=== PATIENT | female | born 1995 | race Caucasian/White ===

== ENCOUNTER 2023-10-28 14:00 | Emergency (ER) | payer BC ==
[2023-10-28 14:45] LABS: Specific Gravity > 1.030 (1.005-1.030)
[2023-10-28 14:49] LABS: Specific Gravity > 1.030 (1.005-1.030); Sqamous Epithelial <5 /HPF (None Seen); Urine Bacteria None Seen /HPF (<20); Urine Bilirubin NEGATIVE (Negative); Urine Blood Negative (Negative); Urine Clarity Turbid (Clear); Urine Color Yellow (Yellow); Urine Culture Reflex Order NOT NEEDED; Urine Glucose NEGATIVE (Negative); Urine Ketones NEGATIVE (Negative); Urine Micro Reflex YN NO BILL MICROSCOPIC; Urine Mucus 3+ /HPF (None Seen); Urine Nitrite NEGATIVE (Negative); Urine Protein TRACE (Negative); Urine Urobilinogen 1+ (Normal); Urine WBC <5 /HPF (<5); Urine pH 5.5 (5.0-7.0)
[2023-10-28] MEDS ORDERED: ONDANSETRON 4 MG/2 ML VIAL ONE (15:10)
[2023-10-28] MEDS ORDERED: NA CHLORIDE 0.9% 1,000 ML ONE ×2 (15:14→16:38)
[2023-10-28 15:24] LABS: Absolute Eosinophils 0.1 K/uL (0-0.5); Absolute Lymphocytes (CBC) 0.6 K/uL (0.7-4.9); Absolute Monocytes 0.5 K/uL (0.1-1.3); Absolute Neutrophil 12.1 K/uL (1.8-8.0); Basophils % 0.2 % (0-1.3); Eosinophils % 0.8 % (0-4.4); Hematocrit 45.5 % (36.0-45.0); Hemoglobin 15.1 g/dL (12.0-15.0); Lymphocytes % 4.3 % (15.3-44.8); MCH 31.2 pg (27.0-35.0); MCHC 33.3 g/dL (32.0-36.0); MCV 93.8 fL (80-100); MPV 8.4 fL (7.6-11.3); Monocytes % 3.4 % (3.3-12.3); Neutrophils % 91.3 % (41.7-73.7); Platelets 310 thou/uL (152-406); RBC Red Blood Cell Count 4.85 M/uL (3.86-4.86); Red Cell Distribution Width 13.4 % (12.1-15.2)
[2023-10-28 15:37] LABS: PT Prothrombin Time 12.4 SECONDS (9.5-12.5); PTT, Activated Partial Thromb 30.3 SECONDS (24.3-36.9); Protime INR 1.13
[2023-10-28 15:42] LABS: Albumin 4.8 g/dL (3.4-5.0); Albumin/Globulin Ratio 1.1 (1.1-1.8); Bilirubin Total 0.7 mg/dL (0.2-1.0); Globulin 4.3 g/dL (2.3-3.5); Protein, Total 9.1 g/dL (6.4-8.2)
[2023-10-28] MEDS ORDERED: DIPHENHYDRAMINE 50 MG/ML VIAL ONE (15:47)
[2023-10-28] MEDS ORDERED: FAMOTIDINE 20 MG/2 ML VIAL IV ONE (15:47)
--- NOTE | 2023-10-28 16:16 | RAD REPORT ---
EXAM DESCRIPTION: CT - Head Brain Wo Cont - 10/28/2023 4:06 pm CLINICAL HISTORY: SLURRED SPEECH COMPARISON: No comparisons TECHNIQUE: All CT scans are performed using dose optimization technique as appropriate and may inclu de automated exposure control or mA/KV adjustment according to patient size. FINDINGS: No intracranial hemorrhage, hydrocephalus or extra-axial fluid collection.No areas of brai n edema or evidence of midline shift. Low-lying cerebellar tonsils. The paranasal sinuses and mastoids are clear. The calvarium is intact. IMPRESSION: No acute intracranial abnormality.
[2023-10-28 16:19] LABS: Blood Morphology Comment NOT SEEN (NOT SEEN); Platelet Estimate ADEQ; White Blood Cell Scan OK (OK)
--- NOTE | 2023-10-28 16:24 | RAD REPORT ---
EXAM DESCRIPTION: CTAbdomen Pelvis W Contrast - 10/28/2023 4:13 pm CLINICAL HISTORY: ABD PAIN COMPARISON: No comparisons TECHNIQUE: CT of the abdomen and pelvis was performed. All CT scans are performed using dose optimization technique as appropriate and may include automated exposure control or mA/KV adjustment according to patient size. FINDINGS: Lower chest: No acute abnormality. Liver: No acute abnormality or suspicious lesions. Biliary: No biliary ductal dilatation. Cholecystectomy Stomach: No significant focal abnormality. Duodenum: No significant focal abnormality. Pancreas: No significant abnormality. Spleen: No significant abnormality. Adrenal: No suspicious lesions. Kidney/ureter: No hydronephrosis. No renal calculi. Retroperitoneum: No retroperitoneal adenopathy. Vascular: No aneurysm. Bowel: Fluid present throughout the small bowel and colon. No appendicitis . Peritoneum: No ascites or free air. Bladder: Grossly unremarkable. Reproductive: No adnexal masses. Bones: No acute fracture. Other: n/a IMPRESSION: Nonspecific fluid within the small bowel and colon could represent a gastroenteritis. No appendicitis.
[2023-10-28] MEDS ORDERED: NA CHLORIDE 0.9% 50 ML ONE (17:44)
[2023-10-28] MEDS ORDERED: METOCLOPRAMIDE 10 MG/2mL INJ ONE (17:44)
--- NOTE | 2023-10-28 18:13 | ER ---
Nurse's Notes [facility] Name: Yolanda Alfonso Age: 27 yrs Sex: Female : 1995 Arrival Date: 10/28/2023 Time: 14:00 Bed 14 Private MD: Diagnosis: Gastroenteritis Presentation: 10/27 14:09 Chief complaint: Patient states: RLQ abdominal pain with N/V/D started this AM. Sweaty ll1 but no known fever. Coronavirus screen: Client denies travel out of the [place] in the last 14 days. At this time, the client does not indicate any symptoms associated with coronavirus-19. Ebola Screen: Patient denies travel to an Ebola-affected area in the 21 days before illness onset. Initial Sepsis Screen: Does the patient meet any 2 criteria? No. Patient's initial sepsis screen is negative. Does the patient have a suspected source of infection? No. Patient's initial sepsis screen is negative. Risk Assessment: Do you want to hurt yourself or someone else? Patient reports no desire to harm self or others. Onset of symptoms was October 28, 2023. 14:09 Method Of Arrival: Ambulatory ll1 14:09 Acuity: YUNG 3 ll1 Triage Assessment: 14:10 General: Appears uncomfortable, Behavior is calm, cooperative, appropriate for age. ll1 Pain: Complains of pain in right lower quadrant Quality of pain is described as aching, sharp. Neuro: No deficits noted. Cardiovascular: No deficits noted. GI: Reports lower abdominal pain, diarrhea, nausea, vomiting. Historical: - Allergies: 14:08 Iodine; ll1 14:08 SHELLFISH; ll1 - Home Meds: 14:08 Prozac Oral [Active]; ll1 - PMHx: 14:08 HTN during ; ll1 - PSHx: 14:08 Cholecystectomy; Tonsillectomy; ll1 - Immunization history:: Adult Immunizations up to date. - Infectious Disease History:: Denies. - Social history:: Smoking status: Patient denies any tobacco usage or history of. Screenin:34 [facility] ED Fall Risk Assessment (Adult) History of falling in the last 3 months, db including since admission No falls in past 3 months (0 pts) Confusion or Disorientation No (0 pts) Intoxicated or Sedated No (0 pts) Impaired Gait No (0 pts) Mobility Assist Device Used No (0 pt) Altered Elimination No (0 pt) Score/Fall Risk Level 0 - 2 = Low Risk Oriented to surroundings, Maintained a safe environment. Abuse screen: Denies threats or abuse. Denies injuries from another. Nutritional screening: No deficits noted. Tuberculosis screening: No symptoms or risk factors identified. Assessment: 14:45 Reassessment: Patient appears in no apparent distress at this time. Patient and/or db family updated on plan of care and expected duration. Pain level reassessed. Patient is alert, oriented x 3, equal unlabored respirations, skin warm/dry/pink. General: Appears in no apparent distress. comfortable, Behavior is calm, cooperative. Pain: Complains of pain in abdomen and right lower quadrant. Neuro: Level of Consciousness is awake, alert, obeys commands, Oriented to person, place, time, situation. Respiratory: Airway is patent Respiratory effort is even, unlabored, Respiratory pattern is regular, symmetrical. GI: Abd is soft Abdomen is tender to palpation in right lower quadrant. 15:00 Reassessment: PT SUDDENLY BECAME SHORT OF BREATH, DIAPHORETIC, PALE AND STARTED db VOMITING. NOTIFIED. PROVIDER Negrita LEE. PT BP INITIALLY 78/49 THEN DROPPED TO 66/52 PLACED IN TRENDELENBURG AND NS BOLUS STARTED BP INCREASED TO 82/59 AND THEN 98/76. PROVIDER AT BEDSIDE AND ASSESSED PT. NO NEW ORDERS AT THIS TIME. General: Appears distressed, uncomfortable, Behavior is. 16:03 Reassessment: Patient appears in no apparent distress at this time. Patient and/or db family updated on plan of care and expected duration. Pain level reassessed. Patient is alert, oriented x 3, equal unlabored respirations, skin warm/dry/pink. Patient states feeling better. Patient states symptoms have improved. 16:43 Reassessment: PATIENT PROVIDED WATER FOR PO CHALLENGE. db 17:50 Reassessment: PATIENT GIVEN JUICE AND CRACKERS FOR PO CHALLENGE. COMPLAINED OF NAUSEA. db GIVEN REGLAN. SEE MAR. 18:24 Reassessment: Patient appears in no apparent distress at this time. Patient and/or db family updated on plan of care and expected duration. Pain level reassessed. Patient is alert, oriented x 3, equal unlabored respirations, skin warm/dry/pink. PT TOLERATED PO CHALLENGE. Patient states feeling better. Patient states symptoms have improved. Vital Signs: 14:09 BP 120 / 87; Pulse 118; Resp 17; Temp 97.2; Pulse Ox 97% ; Weight 63.5 kg; Height 5 ft. ll1 9 in. ; Pain 5/10; 15:00 BP 78 / 49; Pulse 112; Resp 24; Pulse Ox 97% on R/A; db 15:05 BP 66 / 52; Pulse 69; Resp 22; Pulse Ox 99% ; db 15:06 BP 80 / 51; Pulse 87; db 15:07 BP 82 / 59; Pulse 87; Resp 21; db 15:08 BP 98 / 76; Pulse 95; Resp 20; db 15:14 BP 100 / 71; Pulse 84; Resp 18; Pulse Ox 100% on R/A; db 15:14 BP 100 / 71; Pulse 84; db 15:30 BP 112 / 74; Pulse 76; Resp 14; Pulse Ox 100% on R/A; db 16:21 BP 114 / 76; Pulse 89; Resp 14; Temp 98.6; Pulse Ox 100% ; db 17:00 BP 121 / 77; Pulse 87; Resp 16; Pulse Ox 100% on R/A; db 18:24 BP 110 / 74; Pulse 87; Resp 18; Pulse Ox 100% on R/A; db 14:09 Body Mass Index 20.67 (63.50 kg, 175.26 cm) ll1 14:09 Pain Scale: Adult ll1 ED Course: 14:02 Patient arrived in ED. ts1 14:03 Jackie Dean [facility]C [facility]. sb4 14:03 Laci Nails MD is Attending Physician. sb4 14:10 Triage completed. ll1 14:10 Arm band placed on Patient placed in an exam room, on a stretcher. ll1 14:33 Test, Urine Sent. me1 14:33 UAM Sent. me1 14:33 Urine collected: clean catch specimen, dewayne colored. me1 14:45 First set of blood cultures drawn by me. db 15:05 Initial lab(s) drawn, by me, sent to lab. Second set of blood cultures drawn. Inserted db saline lock: 22 gauge in right antecubital area, using aseptic technique. Blood collected. 15:27 Zabrina Self, RN is Primary Nurse. db 15:32 Patient has correct armband on for positive identification. Bed in low position. Call db light in reach. Side rails up X 1. Placed in gown. Client placed on continuous cardiac and pulse oximetry monitoring. NIBP monitoring applied. lunchroom monitor on. Pulse ox on. NIBP on. 16:[address] db 16:08 Head Brain Wo Cont CT In Process Unspecified. EDMS 16:14 CT Abd/Pelvis - IV Contrast Only: pre-medicate with benadryl In Process Unspecified. EDMS 18:34 No provider procedures requiring assistance completed. IV discontinued, intact, db bleeding controlled, No redness/swelling at site. 18:34 Provided Education on: DISCHARGE. Warm blanket given. Pillow given. db Administered Medications: 15:10 Drug: Ondansetron IVP 4 mg IVP once; over 2 minutes Route: IVP; Site: right antecubital;db 16:07 Follow up: Response: No adverse reaction db 15:27 Drug: NS 0.9% IV 1000 ml IV at 1 bolus Per protocol; 1000 mL bolus Route: IV; Rate: 1 db bolus; Site: right antecubital; 16:07 Follow up: Response: No adverse reaction; IV Status: Completed infusion; IV Intake: db 1000ml 15:56 Drug: Famotidine IVP 20 mg IVP once; dilute with 10 mL 0.9% NaCl; give over 2 minutes db Route: IVP; Site: right antecubital; 16:07 Follow up: Response: No adverse reaction db 15:58 Drug: diphenhydrAMINE IVP 50 mg IVP once Route: IVP; Site: right antecubital; db 16:07 Follow up: Response: No adverse reaction db 16:43 Drug: NS 0.9% IV 1000 ml IV at 1 bolus Per protocol; 1000 mL bolus Route: IV; Rate: 1 db bolus; Site: right antecubital; 18:35 Follow up: Response: No adverse reaction; IV Status: Completed infusion; IV Intake: db 1000ml 17:50 Drug: metoCLOPramide IVP 10 mg IVP once; over 1 to 2 minutes Route: IVP; Site: right db antecubital; 18:36 Follow up: Response: No adverse reaction db Medication: 14:45 VIS not applicable for this client. db Intake: 16:07 IV: 1000ml; Total: 1000ml. db 18:35 IV: 1000ml; Total: 2000ml. db Outcome: 18:12 Discharge ordered by . sb4 18:34 Discharged to home ambulatory, with family, db 18:34 Condition: stable 18:34 Discharge instructions given to patient, Instructed on discharge instructions, follow up and referral plans. Prescriptions given X 1, 18:36 Patient left the ED. db Signatures: Dispatcher [employer] Ophelia Bernardo RN RN ll1 Zabrina Self RN RN db Jackie Dean PA-C PA-C sb4 Jhoana Perkins, MERLE PAS ts1 Swetha Pinto RN RN me1 Corrections: (The following items were deleted from the chart) 15:14 14:09 Chief complaint: Patient states: RLQ abdominal apin with N/V/D started this AM. ll1 Sweaty but no known fever ll1
--- NOTE | 2023-10-28 18:13 | EDPHYS ---
Physician Documentation [facility] Name: Yolanda Alfonso Age: 27 yrs Sex: Female : 1995 Arrival Date: 10/28/2023 Time: 14:00 Bed 14 Private MD: EDMUND Physician Laci Nails HPI: 10/27 14:17 This 27 yrs old Female presents to ER via Ambulatory with complaints of Abdominal Pain. sb4 14:17 The patient presents with abdominal pain right lower quadrant. Onset: The sb4 symptoms/episode began/occurred this morning. The symptoms do not radiate. Associated signs and symptoms: Pertinent positives: nausea, vomiting, and diarrhea. The symptoms are described as sharp. Modifying factors: The symptoms are alleviated by remaining still, the symptoms are aggravated by movement. Severity of pain: At its worst the pain was a 8 / 10. The patient has experienced a previous episode, many years ago, with an ovarian cyst. The patient has not recently seen a physician. Historical: - Allergies: 14:08 Iodine; ll1 14:08 SHELLFISH; ll1 - Home Meds: 14:08 Prozac Oral [Active]; ll1 - PMHx: 14:08 HTN during ; ll1 - PSHx: 14:08 Cholecystectomy; Tonsillectomy; ll1 - Immunization history:: Adult Immunizations up to date. - Infectious Disease History:: Denies. - Social history:: Smoking status: Patient denies any tobacco usage or history of. ROS: 14:17 Constitutional: Negative for fever, chills, and weight loss, sb4 14:17 Abdomen/GI: Positive for abdominal pain, nausea, vomiting, and diarrhea, 14:17 All other systems are negative, Exam: 14:17 Constitutional: This is a well developed, well nourished patient who is awake, alert, sb4 and in no acute distress. Head/Face: Normocephalic, atraumatic. Eyes: Extra-ocular motions intact. Periorbital areas with no swelling, redness, or edema. ENT: Mucous membranes moist. Cardiovascular: Regular rate and rhythm with a normal S1 and S2. Respiratory: Lungs have equal breath sounds bilaterally, clear to auscultation and percussion. No rales, rhonchi or wheezes noted. No increased work of breathing, no retractions or nasal flaring. Skin: Warm, dry with normal turgor. Normal color with no rashes, no lesions, and no evidence of cellulitis. MS/ Extremity: Pulses equal, no cyanosis. Neurovascular intact. Full, normal range of motion. 14:17 Abdomen/GI: Inspection: abdomen appears normal, Bowel sounds: normal, Palpation: soft, mild abdominal tenderness, in the right lower quadrant, Vital Signs: 14:09 BP 120 / 87; Pulse 118; Resp 17; Temp 97.2; Pulse Ox 97% ; Weight 63.5 kg; Height 5 ft. ll1 9 in. ; Pain 5/10; 15:00 BP 78 / 49; Pulse 112; Resp 24; Pulse Ox 97% on R/A; db 15:05 BP 66 / 52; Pulse 69; Resp 22; Pulse Ox 99% ; db 15:06 BP 80 / 51; Pulse 87; db 15:07 BP 82 / 59; Pulse 87; Resp 21; db 15:08 BP 98 / 76; Pulse 95; Resp 20; db 15:14 BP 100 / 71; Pulse 84; Resp 18; Pulse Ox 100% on R/A; db 15:14 BP 100 / 71; Pulse 84; db 15:30 BP 112 / 74; Pulse 76; Resp 14; Pulse Ox 100% on R/A; db 16:21 BP 114 / 76; Pulse 89; Resp 14; Temp 98.6; Pulse Ox 100% ; db 17:00 BP 121 / 77; Pulse 87; Resp 16; Pulse Ox 100% on R/A; db 18:24 BP 110 / 74; Pulse 87; Resp 18; Pulse Ox 100% on R/A; db 14:09 Body Mass Index 20.67 (63.50 kg, 175.26 cm) ll1 14:09 Pain Scale: Adult ll1 MDM: 14:04 Patient medically screened. sb4 17:44 Data reviewed: vital signs, nurses notes, lab test result(s), radiologic studies, I sb4 have discussed the patient's presentation/case with the attending Emergency Department Physician; and as a result, I will discharge patient. Consideration of Admission/Observation Escalation of care including admission/observation considered. Counseling: I had a detailed discussion with the patient and/or guardian regarding the historical points, exam findings, and any diagnostic results supporting the discharge/admit diagnosis, lab results, radiology results, to return to the emergency department if symptoms worsen or persist or if there are any questions or concerns that arise at home. 10/27 14:12 Order name: Blood Culture Adult (2) 4 10/27 14:12 Order name: CBC with Diff; Complete Time: 16:25 sb4 10/27 14:12 Order name: CMP; Complete Time: 15:42 sb4 10/27 14:12 Order name: Lactate w/ 2H reflex if indic.; Complete Time: 15:43 sb4 10/27 14:12 Order name: Protime (+inr); Complete Time: 15:38 sb4 10/27 14:12 Order name: Ptt, Activated; Complete Time: 15:38 sb4 10/27 14:12 Order name: Lipase; Complete Time: 15:42 sb4 10/27 14:19 Order name: Test, Urine; Complete Time: 14:51 sb4 10/27 14:19 Order name: UAM; Complete Time: 14:51 4 10/27 16:20 Order name: CBC Smear Scan; Complete Time: 16:25 EDMS 10/27 14:16 Order name: CT Abd/Pelvis - IV Contrast Only: pre-medicate with benadryl; Complete sb4 Time: 16:25 10/27 15:25 Order name: Head Brain Wo Cont CT; Complete Time: 16:16 4 10/27 14:12 Order name: Cardiac monitoring; Complete Time: 15:27 sb4 10/27 14:12 Order name: IV Saline Lock - Large Bore; Complete Time: 15:28 4 10/27 14:12 Order name: Labs collected and sent; Complete Time: 15:28 4 10/27 14:12 Order name: O2 Sat Monitoring; Complete Time: 15:28 sb4 10/27 14:12 Order name: Vital Signs; Complete Time: 15:28 4 10/27 16:33 Order name: PO challenge; Complete Time: 17:50 sb4 Administered Medications: 15:10 Drug: Ondansetron IVP 4 mg IVP once; over 2 minutes Route: IVP; Site: right antecubital;db 16:07 Follow up: Response: No adverse reaction db 15:27 Drug: NS 0.9% IV 1000 ml IV at 1 bolus Per protocol; 1000 mL bolus Route: IV; Rate: 1 db bolus; Site: right antecubital; 16:07 Follow up: Response: No adverse reaction; IV Status: Completed infusion; IV Intake: db 1000ml 15:56 Drug: Famotidine IVP 20 mg IVP once; dilute with 10 mL 0.9% NaCl; give over 2 minutes db Route: IVP; Site: right antecubital; 16:07 Follow up: Response: No adverse reaction db 15:58 Drug: diphenhydrAMINE IVP 50 mg IVP once Route: IVP; Site: right antecubital; db 16:07 Follow up: Response: No adverse reaction db 16:43 Drug: NS 0.9% IV 1000 ml IV at 1 bolus Per protocol; 1000 mL bolus Route: IV; Rate: 1 db bolus; Site: right antecubital; 18:35 Follow up: Response: No adverse reaction; IV Status: Completed infusion; IV Intake: db 1000ml 17:50 Drug: metoCLOPramide IVP 10 mg IVP once; over 1 to 2 minutes Route: IVP; Site: right db antecubital; 18:36 Follow up: Response: No adverse reaction db Disposition Summary: 10/28/23 18:12 Discharge Ordered Notes: Location: Home sb4 Problem: new sb4 Symptoms: have improved sb4 Condition: Stable sb4 Diagnosis - Gastroenteritis sb4 Followup: sb4 - With: Emergency Department - When: As needed - Reason: Trouble breathing, Worsening of condition Discharge Instructions: - Discharge Summary Sheet sb4 - Viral Gastroenteritis, Adult, [id number] sb4 Forms: - Patient Portal Instructions sb4 - Leadership Thank You Letter sb4 Prescriptions: - promethazine 25 mg Oral Tablet - take 1 tablet ORAL route every 6 hours As needed; 20 tablet; Refills: 0, sb4 Product Selection Permitted Signatures: Dispatcher [employer] EDOphelia Ocampo RN RN ll1 Zabrina Self RN RN Jackie Aguilar PA-C PAMarcus sb4 Corrections: (The following items were deleted from the chart) 14:19 14:19 Test, Urine+UC.LAB.BRZ ordered. EDMS EDMS 14:19 14:19 Urinalysis W/Microscopic+U.LAB.BRZ ordered. EDMS EDMS
[2023-10-28 19:04] VITALS: BP 110/74; TEMP 98.6; O2SAT 100
== END 2023-10-28 18:36 | disposition home or self-care (01) ==
LOC: ER 14:00
DX: K52.9 Noninfective gastroenteritis and colitis, unspecified (principal)
CPT/HCPCS: 96361; 87040 ×2; 85025; 81001; 36415; 81025; 85610; 83605; 85730; 83690; 80053; 70450; 74177; 96375; 96374; 99285; Q9967; J2765; J1200; J2405; J7030 ×2